=== PATIENT | male | born 1965 | race Caucasian/White ===

== ENCOUNTER 2019-03-25 16:00 | Inpatient (IN) ==
[2019-03-25] MEDS ORDERED: OPTIRAY 320 125ml IV PRN (17:16)
--- NOTE | 2019-03-25 17:23 | CT Scan Report ---
CT ANGIOGRAM OF THE CHEST CLINICAL HISTORY: Shortness of breath. Possible pulmonary embolism. COMPARISON STUDY: Chest x-ray dated 03/25/2019 TECHNIQUE: Following the IV administration of 101 mL of Optiray-320, CT angiogram of the thorax was p erformed from the thoracic inlet to the lung bases utilizing the pulmonary embolus protocol. Images a re reviewed in the axial, sagittal, and coronal planes. IV contrast was administered without complica tion. MIP imaging was performed. A dose lowering technique was utilized adhering to the principles o f ALARA. CT DOSE: 617.18 mGycm FINDINGS: There is a 14 mm left lobe thyroid nodule. The right lobe of the thyroid is not visualized. No pathologically enlarged axillary mediastinal or hilar lymph nodes were visualized. There was no evidence of thoracic aortic dilatation. There were no pulmonary artery filling defects to indicate acute pulmonary embolism. The examination is limited due to significant respiratory motion artifact. No pleural effusions are visualized. There is no focal pulmonary consolidation. IMPRESSION: 1. No evidence of acute pulmonary embolism given the limitations of a motion degraded study. If there is a strong clinical suspicion of the presence of pulmonary embolism then correlation with serial le g ultrasonography should be considered 2. No evidence of focal pulmonary consolidation 3. Nonvisualization of the right lobe of the thyroid. 14 mm left lobe thyroid nodule. Electronically signed by: Sudeep Carpenter M.D. 03/25/2019 5:22 PM
[2019-03-25 17:27] LABS: Basophils # (auto) 0.03 K/uL (0-0.2); Basophils % (auto) 0.4 %; Eosinophils # (auto) 0.09 K/uL (0-0.5); Eosinophils % (auto) 1.3 %; Hematocrit (blood only) 43.5 % (42-52); Hemoglobin 15.8 g/dL (14.0-18.0); Immature Granulocytes # (auto) 0.01 K/uL (0.00-0.02); Immature Granulocytes % (auto) 0.1 %; Lymphocytes # (auto) 1.82 K/uL (1.2-3.4); Lymphocytes % (auto) 26.2 %; Mean Corpuscular Hemoglobin 32.2 pg (25-34); Mean Corpuscular Hgb Conc 36.3 g/dL (32-36); Mean Corpuscular Volume 88.6 fL (80-100); Mean Platelet Volume 9.6 fL (7.4-10.4); Monocytes # (auto) 0.54 K/uL (0.11-0.59); Monocytes % (auto) 7.8 %; Neutrophils # (auto) 4.46 K/uL (1.4-6.5); Neutrophils % (auto) 64.2 %; Platelet Count 258 K/uL (130-400); RDW Coefficient of Variation 12.7 % (11.5-14.5); Red Blood Count 4.91 M/uL (4.7-6.1); White Blood Count 6.95 K/uL (4.8-10.8)
[2019-03-25 17:42] LABS: Albumin Level 4.3 gm/dl (3.4-5.0); BUN Creatinine Ratio 14.3 (10-20); Blood Urea Nitrogen 11 mg/dl (7-18); Calcium 9.4 mg/dl (8.5-10.1); Carbon Dioxide 24 mmol/L (21-32); Chloride 106 mmol/L (98-107); Creatinine Clr Calc Pharmacy 147.5 ml/min; Est GFR (African American) 118.4; Est GFR (Non-African American) 102.2; Glucose 90 mg/dl (70-99); Lipase 793 U/L (73-393); Potassium 3.6 mmol/L (3.5-5.1); Sodium 138 mmol/L (136-145)
[2019-03-25 17:49] LABS: Alanine Aminotransferase 37 U/L (12-78); Alkaline Phosphatase 87 U/L (45-117); Aspartate Aminotransferase 22 U/L (15-37); Bilirubin,Total 0.8 mg/dl (0.2-1); Globulin 4.1 gm/dl (2.5-4.0); Total Protein 8.4 gm/dl (6.4-8.2); Troponin I < 0.015 ng/ml (0-0.045)
[2019-03-25] MEDS ORDERED: PANTOprazole 40 MG TAB PO STA (19:18)
[2019-03-25] MEDS ORDERED: PANTOprazole 40 MG TAB ONE (19:31)
[2019-03-25] MEDS ORDERED: FUROSEMIDE 40 MG/4 ML VIAL IV STA (19:37)
[2019-03-25] MEDS ORDERED: POTASSIUM CHLORIDE 20 MEQ TABCR PO STA (19:37)
--- NOTE | 2019-03-25 19:37 | History & Physical Report ---
Date of Service March 25, 2019 Assessment & Plan (1) Chest pain: Admitted with the exertional shortness of breath and questionable chest pain Symptoms have been going on for more than 3 weeks and has been getting worse This is a second visit for today in the emergency room and troponins have been negative so far We will get serial troponin An echo to evaluate LV function Likely be discharged home if echo is normal and cardiac enzymes does not show any ACS Will need to have an outpatient stress test through his PCP (2) Shortness of breath: Shortness of breath has been going on for more than 3 weeks This is associated with orthopnea No weight gain and no edema Minimal crackles in the right base only on examination We will get BNP May have fluid overload and will get a small dose of Lasix one-time dose tonight Chest x-ray and CT scan has been negative for any fluid overload CTA is negative for pulmonary embolism Will get ultrasound to rule out DVTs Doubt any psoriatic lung disease but will need to have a referral to outpatient tea blender following discharge to get pulmonary function test done No history of asthma and/or COPD and is a non-smoker (3) HTN (hypertension): Continue lisinopril (4) Hyperlipidemia: Continue current medication (5) Psoriasis: Seems to be stable DVT prophylaxis SCDs and increase ambulation CODE STATUS Full History of Present Illness Chief Complaint: Exertional shortness of breath with orthopnea worse for the last few days Primary Care Provider: NO PCP He is 54-year-old male with significant past medical history of hypertension and hyperlipidemia has been complaining of exertional shortness of breath for the last 3 weeks or so. He also has orthopnea and has not been able to sleep for the last few days with the symptoms. He denies any fever and/or chills with it, no cough and no wheezing. No chest pain and/or palpitation. He denies any reflux disease. He was seen in the ER this morning with same symptoms and heparin investigation including EKG, troponin and CTA were negative for any significant findings. He went home and again got shortness of breath with minimal exertion and was brought back to the emergency room. He does not smoke and there is no history of asthma and/or seasonal allergy. He was admitted to telemetry to rule out significant cardiac condition. Allergie s Allergy/AdvReac Type Severity Reaction Status Date / Time No Known Allergies Allergy Verified 03/25/19 16:52 Home Medications Home Medications Medication Instructions Recorded Confirmed Type aspirin 81 mg PO QAM 03/25/19 03/25/19 History atorvastatin 20 mg PO QAM 03/25/19 03/25/19 History colestipol 1 g PO QAM 03/25/19 03/25/19 History lactobacillus combination no.4 0 mmu cells PO QAM 03/25/19 03/25/19 History [Probiotic] lisinopril 20 mg PO QAM 03/25/19 03/25/19 History multivitamin 1 tab PO QAM 03/25/19 03/25/19 History Past Med/Surg History Medical History (Updated 03/25/19 @ 19:28 by Ada Amor MD) HTN (hypertension) Hyperlipidemia Psoriasis Social History Feels Safe at Home: Yes Smoking Status: Never smoker Review of Systems Review of Systems: All systems reviewed & are unremarkable except as noted in HPI & below Physical Exam Physical Exam: Lying in bed comfortably but anxious Constitutional: well developed, well nourished and + ill appearing; no acute distress Eyes: PERRL, conjunctivae normal, anicteric sclerae ENMT: external ear and nose normal, oropharynx normal Neck: trachea midline, no thyromegaly Has 14 mm left thyroid lobe nodule on CAT scan Respiratory: normal respiratory effort Auscultation: lungs clear to auscultation bilaterally and + crackles (Minimal crackles at the right base) Cardiovascular: Rate/Rhythm: regular rate and regular rhythm Heart Sounds: no murmur Gastrointestinal (Abdomen): Inspection/Auscultation: abdomen normal to inspection and normal bowel sounds Percussion/Palpation: abdomen soft; abdomen nontender Musculoskeletal: No acute arthritis in any joint Skin: Has scattered psoriatic patches Neurologic: patellar DTR's 2+ bilat, sensation intact Psychiatric: A+Ox3, euthymic affect Lymphatic: no cervical or axillary lymphadenopathy Results & Data Vital Signs (Past 12 Hours) Vital Signs Temp Pulse Resp BP Pulse Ox 03/25/19 19:00 76 22 143/93 H 98 03/25/19 18:00 76 18 115/72 98 03/25/19 17:30 72 15 135/79 97 03/25/19 16:52 99 03/25/19 16:05 36.5 C 86 24 148/86 H 99 Laboratory Results Short CBC 03/25/19 Range/Units 16:55 WBC 6.95 (4.8-10.8) K/uL Hgb 15.8 (14.0-18.0) g/dL Hct 43.5 (42-52) % Plt Count 258 (130-400) K/uL BMP 03/25/19 16:55 Sodium 138 Potassium 3.6 Chloride 106 Carbon Dioxide 24 BUN 11 Creatinine 0.77 Glucose 90 Calcium 9.4 Cardiac Enzymes 03/25/19 Range/Units 16:55 Troponin I < 0.015 (0-0.045) ng/ml Liver Function 03/25/19 Range/Units 16:55 Total Bilirubin 0.8 (0.2-1) mg/dl AST 22 (15-37) U/L ALT 37 (12-78) U/L Alkaline Phosphatase 87 (45-117) U/L Albumin 4.3 (3.4-5.0) gm/dl Medications Administered Current Inpatient Medications Ioversol (Optiray 320 125ml) 101 ml IV ONCE PRN PRN Reason: Interaction Checking Stop: 03/29/19 17:15 Last Admin: 03/25/19 17:16 Dose: 101 ml Documented by: Pantoprazole Sodium (Protonix) 40 mg PO NOW STA Stop: 03/25/19 19:19 Pantoprazole Sodium (Protonix) 40 mg PO DAILY JOSE Stop: 04/25/19 08:59 Code Status & VTE Plan VTE Prophylaxis Plan VTE Prophylaxis will be ordered: Yes (1) Chest pain Chest pain type: unspecified Qualified Code(s): R07.9 - Chest pain, unspecified
--- NOTE | 2019-03-25 20:50 | Ultrasound Report ---
US venous doppler LE BI CLINICAL HISTORY: Shortness of breath. Suspected pulmonary embolism. Less than optimal CT negative an giography of the chest with leg ultrasound recommended. COMPARISON STUDY: No previous studies for comparison. FINDINGS: Real-time and color flow Doppler imaging were performed. Flow was seen within the femoral, popliteal and calf veins with no intraluminal thrombus demonstrated. The saphenous vein is patent. IMPRESSION: No evidence of lower extremity DVT. Electronically signed by: Sudeep Carpenter M.D. 03/25/2019 8:49 PM
[2019-03-25] MEDS ORDERED: FUROSEMIDE 40 MG/4 ML VIAL IV ONE (22:19)
[2019-03-25] MEDS ORDERED: FUROSEMIDE 40 MG in SYRINGE 0 ML IV ONE (22:25)
--- NOTE | 2019-03-26 00:03 | Emergency Department Note ---
Entered by Concepcion Ceron acting as a scribe for Laci Jordan DO History of Present Illness General Chief complaint: Shortness of Breath/Dyspnea Stated complaint: TROIBLE BREATHING Source: patient History of Present Illness Onset (ago): week(s) 3 Location: chest Pain Consistency: + constant and + other (gradually worsening ) Relieved By: + other (sitting upright) Exacerbated By: + movement (RÍOS) and + rest (laying down) Associated symptoms: + denies other symptoms (diarrhea, arm pain, congestion, rhinorrhea, calf swelling) and + shortness of breath; no cough and no nausea/vomiting The patient is a 54 year old male with a PMHx pertinent for HTN, hyperlipidemia, FHx of paternal VA in his 60s, and other relevant medical problems as indicated on [employer] who presents to the Emergency Room with complaints of shortness of breath/dyspnea. The patient states that he began experiencing shortness of b reath 3 weeks ago which has gradually worsened since onset. He states that it was the worst yesterday so he came to the ED this morning and got an EKG, blood work, and chest x-ray. The patient explains that he was told that any heart related issues are fine and he was sent home to follow up with his PCP. He reports that when he was walking out of the ED today to his car, he had trouble catching his breath. He states that he stopped at his work office to pick something up before heading home and felt like he couldn't catch his breath; "felt winded". The patient reports RÍOS when walking up stairs associated with "shallow breathing and not being able to inhale enough air". He also states that his pain is exacerbated when he is laying down but improved when sitting up. Of note, the patient took a recent trip to [place] and returned home 3 days ago. He denies nausea, vomiting, diarrhea, chest pain, congestion, cough, rhinorrhea, arm pain, calf swelling, and history of blood clots, clotting disorders, DM, or cancer. The patient offers no additional complaints at this time. Home Medications Home Medications Medication Instructions Recorded Confirmed Type aspirin 81 mg PO QAM 03/25/19 03/25/19 History atorvastatin 20 mg PO QAM 03/25/19 03/25/19 History colestipol 1 g PO QAM 03/25/19 03/25/19 History lactobacillus combination no.4 0 mmu cells PO QAM 03/25/19 03/25/19 History [Probiotic] lisinopril 20 mg PO QAM 03/25/19 03/25/19 History multivitamin 1 tab PO QAM 03/25/19 03/25/19 History Allergies Allergy/AdvReac Type Severity Reaction Status Date / Time No Known Allergies Allergy Verified 03/25/19 16:52 Past Med/Surg History Medical History (Updated 03/26/19 @ 00:03 by Laci Jordan DO) HTN (hypertension) (Acute) Hyperlipidemia (Acute) Psoriasis Social History Preferred Language: Bol[place]ian Communication Ability: Effective Beliefs That Will Affect Care: None Current Living Situation: Family Feels Safe at Home: Yes Smoking Status: Never smoker Hx Alcohol Use: Yes Alcohol type: beer Hx Substance Use: No Review of Systems See HPI for pertinent positives & negatives. and A total of 10 systems reviewed and were otherwise negative Physical Exam Vital Signs Vital Signs - 24 hr 03/25/19 16:05 03/25/19 16:52 03/25/19 17:30 Temperature 36.5 C Temperature Source Oral Pulse Rate 86 72 Pulse Rate from SpO2 Sensor 71 Pulse Rhythm Regular Pulse Strength Normal Respiratory Rate 24 15 Respiratory Effort / Characteristics Non-Labored Spontaneous Respiratory Depth Normal Respiratory Pattern Regular Blood Pressure 148/86 H 135/79 Blood Pressure Mean 106 87 Blood Pressure Position Sitting Pulse Oximetry 99 99 97 Oxygen Delivery Method Room Air Room Air Sepsis Recent Fever Within 48 Hours No Sepsis Action Taken by Nursing No Action Required 03/25/19 18:00 03/25/19 19:00 Temperature Temperature Source Pulse Rate 76 76 Pulse Rate from SpO2 Sensor 74 78 Pulse Rhythm Pulse Strength Respiratory Rate 18 22 Respiratory Effort / Characteristics Respiratory Depth Respiratory Pattern Blood Pressure 115/72 143/93 H Blood Pressure Mean 77 120 Blood Pressure Position Pulse Oximetry 98 98 Oxygen Delivery Method Sepsis Recent Fever Within 48 Hours Sepsis Action Taken by Nursing GENERAL: alert, well nourished, sitting up, talking in full sentences, no distress, non-toxic EYE EXAM: normal conjunctiva OROPHARYNX: no exudate, no erythema, lips, buccal mucosa, and tongue normal and mucous membranes are moist NECK: supple, no nuchal rigidity, no adenopathy, non-tender LUNGS: Clear to auscultation. Normal chest wall mechanics HEART: no murmurs, S1 normal and S2 normal ABDOMEN: abdomen soft, non-tender, normo-active bowel sounds, no masses, no rebound or guarding. BACK: Back is symmetrical on inspection and there is no deformity, no midline tenderness, no CVA tenderness. SKIN: no rashes and no bruising UPPER EXTREMITIES: upper extremities are grossly normal. LOWER EXTREMITIES: No pitting edema. Calves equal bilaterally NEURO EXAM: Normal sensorium, cranial nerves II-XII grossly intact, normal speech, no gross weakness of arms, no gross weakness of legs. Course Course 164: Past medical records reviewed. The patient was evaluated in room A09B. A complete history and physical exam was performed. 1822: Spoke with Dr. Amor, [facility] Hospitalist who accepts the patient for admission. The patient verbally expressed understanding and agreement of the treatment plan. The patient will be evaluated for further treatment. Administered Medications Ioversol (Optiray 320 125ml) 101 ml IV ONCE PRN PRN Reason: Interaction Checking Stop: 03/29/19 17:15 Last Admin: 03/25/19 17:16 Dose: 101 ml Documented by: [id number] Discontinued Medications Furosemide (Lasix) Confirm Administered Dose 40 mg IV .STK-MED ONE Stop: 03/25/19 22:20 Last Admin: 03/25/19 22:23 Dose: 40 mg Documented by: [id number] Furosemide 40 mg/ Syringe 4 mls @ 4 mls/min IV ONE ONE Stop: 03/25/19 22:26 Last Admin: 03/25/19 22:23 Dose: Not Given Documented by: [id number] Pantoprazole Sodium (Protonix) 40 mg PO NOW STA Stop: 03/25/19 19:19 Last Admin: 03/25/19 21:34 Dose: 40 mg Documented by: [id number] Pantoprazole Sodium (Protonix) Confirm Administered Dose 40 mg .ROUTE .STK-MED ONE Stop: 03/25/19 19:32 Last Admin: 03/25/19 19:34 Dose: 40 mg Documented by: [id number] Potassium Chloride (Klor-Con M20) 40 meq PO NOW STA Stop: 03/25/19 19:38 Last Admin: 03/25/19 21:34 Dose: 40 meq Documented by: [id number] Impression & Plan Shortness of breath, HTN (hypertension), Hyperlipidemia Discharge Plan Visit Data *Final* Discharge Date/Time: 03/25/19 19:59 Chief Complaint: Shortness of Breath/Dyspnea Stated Complaint: TROIBLE BREATHING ED Provider: Laci Jordan Discharge Problem: Shortness of breath, HTN (hypertension), Hyperlipidemia Patient Disposition: Admitted As Inpatient Discharge Instructions Interventions: ED Discharge Assessment Last Done: 03/25/19 19:59 Medical Decision Making Differential Diagnosis Differential diagnosis includes but is not limited to etiologies such as cardiac ischemia, aortic dissection, pulmonary embolism, pneumonia, pneumothorax, musculoskeletal, infections, pericarditis, myocarditis, esophageal rupture, gastrointestinal, as well as others were entertained. Medical Records Attestation: I reviewed the patient's medical records. Home Medications Current Medication List: was personally reviewed by me Laboratory Data Attestation: I reviewed the patient's lab results. Lab Results 03/25/19 03/25/19 03/25/19 Range/Units 16:55 16:55 16:55 WBC 6.95 (4.8-10.8) K/uL RBC 4.91 (4.7-6.1) M/uL Hgb 15.8 (14.0-18.0) g/dL Hct 43.5 (42-52) % MCV 88.6 (80-100) fL MCH 32.2 (25-34) pg MCHC 36.3 H (32-36) g/dL RDW Std Deviation 41.0 (36.4-46.3) fL RDW Coeff of Yannick 12.7 (11.5-14.5) % Plt Count 258 (130-400) K/uL MPV 9.6 (7.4-10.4) fL Immature Gran % (Auto) 0.1 % Neut % (Auto) 64.2 % Lymph % (Auto) 26.2 % [place] % (Auto) 7.8 % Eos % (Auto) 1.3 % Baso % (Auto) 0.4 % Immature Gran # (Auto) 0.01 (0.00-0.02) K/uL Neut # (Auto) 4.46 (1.4-6.5) K/uL Lymph # (Auto) 1.82 (1.2-3.4) K/uL [place] # (Auto) 0.54 (0.11-0.59) K/uL Eos # (Auto) 0.09 (0-0.5) K/uL Baso # (Auto) 0.03 (0-0.2) K/uL Sodium 138 (136-145) mmol/L Potassium 3.6 (3.5-5.1) mmol/L Chloride 106 (98-107) mmol/L Carbon Dioxide 24 (21-32) mmol/L Anion Gap 8.0 (3-11) BUN 11 (7-18) mg/dl Creatinine 0.77 (0.6-1.4) mg/dl Est Cr Clr Drug Dosing 147.5 ml/min Est GFR ( Amer) 118.4 Est GFR (Non-Af Amer) 102.2 BUN/Creatinine Ratio 14.3 (10-20) Glucose 90 (70-99) mg/dl Calcium 9.4 (8.5-10.1) mg/dl Magnesium 2.0 (1.8-2.4) mg/dl Total Bilirubin 0.8 (0.2-1) mg/dl AST 22 (15-37) U/L ALT 37 (12-78) U/L Alkaline Phosphatase 87 (45-117) U/L Troponin I < 0.015 (0-0.045) ng/ml NT-Pro-B Natriuret Pep 18 (0-900) pg/ml Total Protein 8.4 H (6.4-8.2) gm/dl Albumin 4.3 (3.4-5.0) gm/dl Globulin 4.1 H (2.5-4.0) gm/dl Albumin/Globulin Ratio 1.0 (0.9-2) Lipase 793 H (73-393) U/L Imaging Data Radiologist's Impression: Radiology results as stated below per my review and the radiologist's interpretation: CT ANGIOGRAM OF THE CHEST CLINICAL HISTORY: Shortness of breath. Possible pulmonary embolism. COMPARISON STUDY: Chest x-ray dated 03/25/2019 TECHNIQUE: Following the IV administration of 101 mL of Optiray-320, CT angiogram of the thorax was performed from the thoracic inlet to the lung bases utilizing the pulmonary embolus protocol. Images are reviewed in the axial, sagittal, and coronal planes. IV contrast was administered without complication. MIP imaging was performed. A dose lowering technique was utilized adhering to the principles of ALARA. CT DOSE: 617.18 mGycm FINDINGS: There is a 14 mm left lobe thyroid nodule. The right lobe of the thyroid is not visualized. No pathologically enlarged axillary mediastinal or hilar lymph nodes were visualized. There was no evidence of thoracic aortic dilatation. There were no pulmonary artery filling defects to indicate acute pulmonary embolism. The examination is limited due to significant respiratory motion artifact. No pleural effusions are visualized. There is no focal pulmonary consolidation. IMPRESSION: 1. No evidence of acute pulmonary embolism given the limitations of a motion degraded study. If there is a strong clinical suspicion of the presence of pulmonary embolism then correlation with serial leg ultrasonography should be considered 2. No evidence of focal pulmonary consolidation 3. Nonvisualization of the right lobe of the thyroid. 14 mm left lobe thyroid nodule. Electronically signed by: Sudeep Carpenter M.D. 03/25/2019 5:22 PM US venous doppler [place] JORGE CLINICAL HISTORY: Shortness of breath. Suspected pulmonary embolism. Less than optimal CT negative angiography of the chest with leg ultrasound recommended. COMPARISON STUDY: No previous studies for comparison. FINDINGS: Real-time and color flow Doppler imaging were performed. Flow was seen within the femoral, popliteal and calf veins with no intraluminal thrombus demonstrated. The saphenous vein is patent. IMPRESSION: No evidence of lower extremity DVT. Electronically signed by: Sudeep Carpenter M.D. 03/25/2019 8:49 PM ECG Data Attestation: I personally reviewed and interpreted this ECG as follows: Indication: + SOB/dyspnea Rate (beats per minute): 76 Rhythm: + sinus rhythm ECG Intervals/blocks: + Normal QT ECG Findings: + Other (left axis deviation ); no PVCs Comparison ECG Date: from (10:50AM today) Change: no significant change Blood Pressure Blood Pressure Findings: Elevated blood pressure Blood Pressure Disposition: elevated BP felt to be situational MDM Narrative Patient is a 54-year-old male who presents the ER for shortness of breath which is been getting worse for the past 3 weeks. He was seen here earlier today. He had 2 troponins and chest x-ray was discharged. He walked out to the car and was significantly dyspneic which is even worse than when he was in here. He does have a past medical history of hypertension hyperlipidemia and dad has a previous history of an VA. IV was established blood work was obtained showed no significant leukocytosis or anemia. BMP along with LFTs bilirubin and troponin was negative. proBNP was negative. Lipase was elevated at 800. Do not think that this is consistent with pancreatitis. CT PE was negative although previous d-dimer was negative I did perform this to make sure that there is nothing atypical on the chest. EKG was nondiagnostic. Patient was updated bedside. He was admitted to the hospital after discussion with the patient for worsening symptoms of shortness of breath with his second visit. Discharge Problem: HTN (hypertension) Qualifiers: Hypertension type: unspecified Qualified Code(s): I10 - Essential (primary) hypertension Hyperlipidemia Qualifiers: Hyperlipidemia type: unspecified Qualified Code(s): E78.5 - Hyperlipidemia, unspecified The scribe's documentation has been prepared under my direction and personally reviewed by me in its entirety. I confirm that the note above accurately reflects all work, treatment, procedures, and medical decision making performed by me.
[2019-03-26 06:57] LABS: Basophils # (auto) 0.03 K/uL (0-0.2); Basophils % (auto) 0.5 %; Eosinophils # (auto) 0.19 K/uL (0-0.5); Hematocrit (blood only) 44.6 % (42-52); Immature Granulocytes # (auto) 0.01 K/uL (0.00-0.02); Immature Granulocytes % (auto) 0.2 %; Lymphocytes # (auto) 1.66 K/uL (1.2-3.4); Lymphocytes % (auto) 26.3 %; Mean Corpuscular Hemoglobin 31.9 pg (25-34); Mean Corpuscular Hgb Conc 35.9 g/dL (32-36); Mean Platelet Volume 9.3 fL (7.4-10.4); Monocytes # (auto) 0.44 K/uL (0.11-0.59); Neutrophils # (auto) 3.99 K/uL (1.4-6.5); Platelet Count 250 K/uL (130-400); RDW Coefficient of Variation 12.9 % (11.5-14.5); RDW Standard Deviation 41.7 fL (36.4-46.3); Red Blood Count 5.01 M/uL (4.7-6.1); White Blood Count 6.32 K/uL (4.8-10.8)
[2019-03-26 07:35] LABS: Blood Urea Nitrogen 13 mg/dl (7-18); Calcium 9.4 mg/dl (8.5-10.1); Carbon Dioxide 27 mmol/L (21-32); Chloride 104 mmol/L (98-107); Creatinine Clr Calc Pharmacy 143.3 ml/min; Est GFR (African American) 117.2; Est GFR (Non-African American) 101.1; Glucose 91 mg/dl (70-99); Sodium 139 mmol/L (136-145)
[2019-03-26 07:40] LABS: Troponin I < 0.015 ng/ml (0-0.045)
[2019-03-26] MEDS: MULTIVITAMIN TAB PO SCH (08:08)
[2019-03-26] MEDS: ASPIRIN 81 MG ECTAB PO SCH (08:08)
[2019-03-26] MEDS: LISINOPRIL 20 MG TAB PO SCH (08:08)
[2019-03-26] MEDS ORDERED: ATORVASTATIN 20 MG TAB PO SCH (09:00)
[2019-03-26] MEDS: PANTOprazole 40 MG TAB PO SCH (09:24)
[2019-03-26] MEDS ORDERED: COLESTIPOL HCL 1 GM TAB PO SCH (10:00)
--- NOTE | 2019-03-26 12:00 | Cardiology Consultation ---
Date of Consultation March 26, 2019 Assessment & Plan (1) Dyspnea on exertion: His symptoms are certainly suspicious for that of unstable angina. I was able to partially visualize his coronary anatomy on review of the CT scan and image 68 of 125 reveals significant atherosclerotic disease at the bifurcation of the LAD and circumflex. Obviously, unable to quantify exactly given the limitations of this imaging modality. Given his symptoms, coronary calcifications visualized on CAT scan along with hypokinesis in his mid to distal LAD territory on echocardiogram I believe the most prudent course of action at this point would be to proceed with direct visualization of his coronary anatomy. So we will tentatively plan to perform a cardiac catheterization on 03/28/2019. Obviously should he develop any symptoms not amenable to medical intervention emergent cardiac catheterization may be necessary. (2) CAD (coronary artery disease): As visualized on CT scan. We will continue aspirin at this time and increase his atorvastatin to 80 mg daily. I will also give him a trial of beta- ridge at this time. (3) HTN (hypertension): We will continue his outpatient lisinopril and as above we will attempt to add beta-blockade as well. (4) Hyperlipidemia: Atorvastatin dose will be increased to 80 mg daily. History of Present Illness Reason for Consultation: Unstable angina Requesting Physician: Dr. Pabon Attending Physician: Yoselyn Pabon MD History of Present Illness It was my pleasure to see Officer Farshad in consultation today March 26, 2019. He is a very pleasant 54-year-old gentleman normal [facility] to [facility] emergency department on 03/25/2019 with complaints of worsening shortness of breath. He states that he started noticing approximately 3 weeks ago there is becoming dyspneic with exertion. He states he just did not have the energy to get around and perform his duties as he normally did. He also started having some shortness of breath when laying flat at night. He states he felt as though he was not getting enough air when up to sit up to catch deep breath. Over the next 3 weeks his exertional dyspnea worsened to the point where he came into the ER for evaluation. His initial work-up was unremarkable and he decided to be discharged at that point. Unfortunately. Driving home he only got partly there and shortness of breath again recurred and he came back to the emergency department. He was then admitted to telemetry overnight where his ischemic work-up was unremarkable. However, a resting echocardiogram was performed on 03/26/2019 and wall motion abnormalities were discovered. Currently states he is feeling well at rest he denies expressing any chest discomfort during the last 3 weeks. Allergies Allergy/AdvReac Type Severity Reaction Status Date / Time No Known Allergies Allergy Verified 03/25/19 16:52 Home Medications Home Medications Medication Instructions Recorded Confirmed Type aspirin 81 mg PO QAM 03/25/19 03/25/19 History atorvastatin 20 mg PO QAM 03/25/19 03/25/19 History colestipol 1 g PO QAM 03/25/19 03/25/19 History lactobacillus combination no.4 0 mmu cells PO QAM 03/25/19 03/25/19 History [Probiotic] lisinopril 20 mg PO QAM 03/25/19 03/25/19 History multivitamin 1 tab PO QAM 03/25/19 03/25/19 History Patient History Medical History HTN (hypertension) (Acute) Hyperlipidemia (Acute) Psoriasis Surgical History H/O partial thyroidectomy Social History Preferred Language: Hebrew Communication Ability: Effective Beliefs That Will Affect Care: None Current Living Situation: Family Feels Safe at Home: Yes Smoking Status: Never smoker Hx Alcohol Use: Yes Alcohol type: beer Hx Substance Use: No Review of Systems Review of Systems: All systems reviewed & are unremarkable except as noted in HPI & below Physical Exam Physical Exam: General: Awake, alert and oriented x 3. No acute distress. HEENT: Normocephalic, atraumatic. Pupils equal, round and reactive to light and accommodation. Extraocular muscles are intact. Anicteric sclera. Moist mucous membranes. Neck: No JVD. No bruit. Cardiovascular: Regular. Positive S-4. Normal S-1 and S-2. No S-3. No m urmurs or rubs. Pulmonary: Clear to auscultation B/L. No rales, rhonchi or wheezing Abdomen: Bowel sounds x 4, soft. No rebound, guarding or tenderness. No organomegaly. Extremities: No clubbing, cyanosis or edema. +2 pedal pulses bilaterally. Skin: Warm and dry. Results & Data Vital Signs (Past 12 Hours) Vital Signs Temp Pulse Pulse Resp BP Pulse Ox 03/26/19 08:04 36.9 C 83 18 135/75 93 03/26/19 08:00 73 03/26/19 03:26 36.4 C L 70 18 137/92 92 Laboratory Results Laboratory Results - last 24 hr 03/25/19 03/25/19 03/25/19 16:55 16:55 16:55 WBC 6.95 RBC 4.91 Hgb 15.8 Hct 43.5 MCV 88.6 MCH 32.2 MCHC 36.3 H RDW Std Deviation 41.0 RDW Coeff of Yannick 12.7 Plt Count 258 MPV 9.6 Immature Gran % (Auto) 0.1 Neut % (Auto) 64.2 Lymph % (Auto) 26.2 [place] % (Auto) 7.8 Eos % (Auto) 1.3 Baso % (Auto) 0.4 Immature Gran # (Auto) 0.01 Neut # (Auto) 4.46 Lymph # (Auto) 1.82 [place] # (Auto) 0.54 Eos # (Auto) 0.09 Baso # (Auto) 0.03 Sodium 138 Potassium 3.6 Chloride 106 Carbon Dioxide 24 Anion Gap 8.0 BUN 11 Creatinine 0.77 Est Cr Clr Drug Dosing 147.5 Est GFR ( Amer) 118.4 Est GFR (Non-Af Amer) 102.2 BUN/Creatinine Ratio 14.3 Glucose 90 Calcium 9.4 Magnesium 2.0 Total Bilirubin 0.8 AST 22 ALT 37 Alkaline Phosphatase 87 Troponin I < 0.015 NT-Pro-B Natriuret Pep 18 Total Protein 8.4 H Albumin 4.3 Globulin 4.1 H Albumin/Globulin Ratio 1.0 Lipase 793 H Lyme Disease IgM Ab 03/25/19 03/26/19 03/26/19 19:52 00:11 06:30 WBC RBC Hgb Hct MCV MCH MCHC RDW Std Deviation RDW Coeff of Yannick Plt Count MPV Immature Gran % (Auto) Neut % (Auto) Lymph % (Auto) [place] % (Auto) Eos % (Auto) Baso % (Auto) Immature Gran # (Auto) Neut # (Auto) Lymph # (Auto) [place] # (Auto) Eos # (Auto) Baso # (Auto) Sodium 139 Potassium 4.0 Chloride 104 Carbon Dioxide 27 Anion Gap 8.0 BUN 13 Creatinine 0.79 Est Cr Clr Drug Dosing 143.3 Est GFR ( Amer) 117.2 Est GFR (Non-Af Amer) 101.1 BUN/Creatinine Ratio 16.0 Glucose 91 Calcium 9.4 Magnesium Total Bilirubin AST ALT Alkaline Phosphatase Troponin I < 0.015 < 0.015 NT-Pro-B Natriuret Pep Total Protein Albumin Globulin Albumin/Globulin Ratio Lipase Lyme Disease IgM Ab Negative 03/26/19 06:30 WBC 6.32 RBC 5.01 Hgb 16.0 Hct 44.6 MCV 89.0 MCH 31.9 MCHC 35.9 RDW Std Deviation 41.7 RDW Coeff of Yannick 12.9 Plt Count 250 MPV 9.3 Immature Gran % (Auto) 0.2 Neut % (Auto) 63.0 Lymph % (Auto) 26.3 [place] % (Auto) 7.0 Eos % (Auto) 3.0 Baso % (Auto) 0.5 Immature Gran # (Auto) 0.01 Neut # (Auto) 3.99 Lymph # (Auto) 1.66 [place] # (Auto) 0.44 Eos # (Auto) 0.19 Baso # (Auto) 0.03 Sodium Potassium Chloride Carbon Dioxide Anion Gap BUN Creatinine Est Cr Clr Drug Dosing Est GFR ( Amer) Est GFR (Non-Af Amer) BUN/Creatinine Ratio Glucose Calcium Magnesium Total Bilirubin AST ALT Alkaline Phosphatase Troponin I NT-Pro-B Natriuret Pep Total Protein Albumin Globulin Albumin/Globulin Ratio Lipase Lyme Disease IgM Ab Medications Administered Current Inpatient Medications Aspirin (Ecotrin Ectab) 81 mg PO QAM [facility] Stop: 04/25/19 08:59 Last Admin: 03/26/19 08:08 Dose: 81 mg Documented by: Atorvastatin Calcium (Lipitor) 20 mg PO QAM [facility] Stop: 04/25/19 08:59 Last Admin: 03/26/19 08:08 Dose: 20 mg Documented by: Colestipol HCl (Colestid) 1 gm PO DAILY@1000 [facility] Stop: 04/25/19 09:59 Last Admin: 03/26/19 08:08 Dose: 1 gm Documented by: Ioversol (Optiray 320 125ml) 101 ml IV ONCE PRN PRN Reason: Interaction Checking Stop: 03/29/19 17:15 Last Admin: 03/25/19 17:16 Dose: 101 ml Documented by: Lisinopril (Zestril) 20 mg PO QAM [facility] Stop: 04/25/19 08:59 Last Admin: 03/26/19 08:08 Dose: 20 mg Documented by: Multivitamins (Multivitamin Tab) [facility] Stop: 04/25/19 08:59 Last Admin: 03/26/19 08:08 Dose: 1 tab Documented by: Pantoprazole Sodium (Protonix) 40 mg PO DAILY [facility] Stop: 04/25/19 08:59 Last Admin: 03/26/19 09:24 Dose: 40 mg Documented by: (1) HTN (hypertension) Hypertension type: unspecified Qualified Code(s): I10 - Essential (primary) hypertension (2) Hyperlipidemia Hyperlipidemia type: unspecified Qualified Code(s): E78.5 - Hyperlipidemia, unspecified
[2019-03-26] MEDS: METOPROLOL TARTRATE 25 MG TAB PO SCH ×2 (13:03→18:15)
--- NOTE | 2019-03-26 16:04 | Hospitalist Progress Note ---
Date of Service March 26, 2019 Assessment & Plan (1) Chest pain: UNSTABLE ANGINA: Admitted with the exertional shortness of breath and questionable chest pain Symptoms have been going on for more than 3 weeks and has been getting worse ECHO : moderate hypokinesis of the anteroseptal wall along with mild hypokinesis of the mild to apical portion of the anterior wall Normal LV chamber size , EF 50-55% grade 1 diastolic dysfunction Risk for coronary disease : family hx of CAD -Father had ASCVD , s/p CABG at age 60's pt is a non smoker , active at baseline appreciate input from cardiology plan for for cardiac cath on 03/28/19 cont cardiac risk modification : ordered for aspirin 81 mg daily /atorvastatin 80 mg daily -high intensity statin therapy -ordered for fasting lipid panel in am ; goal LDL < 70 added beta ridge Lopressor 12.5 mg PO Q6hrs (2) Shortness of breath: due to above Shortness of breath with exertion has been going on for more than 3 weeks CTA is negative for pulmonary embolism lower ext Doppler negative for DVT scheduled for cardiac cath in am (3) HTN (hypertension): Continue lisinopril added beta ridge (4) Hyperlipidemia: Lipitor dose increased to 80 mg for high intensity statin tx in setting of CAD (5) Psoriasis: DVT prophylaxis SCDs and increase ambulation CODE STATUS Full DISPOSITION : expected to be discharged home when medically stable [facility] follow up with [facility]ology post discharge Subjective Denies of any chest pain, no shortness of breath, no dyspnea on exertion Has been asymptomatic since admission No fever or chills, no cough Sitting up comfortably on chair, family visiting Physical Exam Constitutional: well developed, well nourished and + ill appearing; no acute distress Eyes: PERRL, conjunctivae normal, anicteric sclerae ENMT: external ear and nose normal, oropharynx normal Neck: trachea midline, no thyromegaly Respiratory: normal respiratory effort Auscultation: lungs clear to auscultation bilaterally and + crackles (Minimal crackles at the right base) Cardiovascular: Rate/Rhythm: regular rate and regular rhythm Heart Sounds: no murmur Gastrointestinal (Abdomen): Inspection/Auscultation: abdomen normal to inspection and normal bowel sounds Percussion/Palpation: abdomen soft; abdomen nontender Skin: no rashes, warm and dry Neurologic: patellar DTR's 2+ bilat, sensation intact Psychiatric: A+Ox3, euthymic affect Results & Data Vital Signs (Past 12 Hours) Vital Signs Temp Pulse Pulse Resp BP Pulse Ox 03/26/19 11:50 36.4 C L 90 18 129/78 94 03/26/19 08:04 36.9 C 83 18 135/75 93 03/26/19 08:00 73 (1) Hyperlipidemia Hyperlipidemia type: unspecified Qualified Code(s): E78.5 - Hyperlipidemia, unspecified (2) Chest pain Chest pain type: unspecified Qualified Code(s): R07.9 - Chest pain, unspecified (3) HTN (hypertension) Hypertension type: unspecified Qualified Code(s): I10 - Essential (primary) hypertension
[2019-03-26] MEDS ORDERED: LORazepam 0.5 MG TAB PO STA (19:29)
[2019-03-27] MEDS: METOPROLOL TARTRATE 25 MG TAB PO SCH ×5 (00:41→22:55)
[2019-03-27 07:09] LABS: Calcium 8.8 mg/dl (8.5-10.1); Creatinine Clr Calc Pharmacy 144.9 ml/min; Est GFR (African American) 117.8; Est GFR (Non-African American) 101.6
[2019-03-27] MEDS: PANTOprazole 40 MG TAB PO SCH (07:40)
[2019-03-27] MEDS: ATORVASTATIN 40 MG TAB PO SCH (07:41)
[2019-03-27] MEDS: LISINOPRIL 20 MG TAB PO SCH (07:41)
[2019-03-27] MEDS: ASPIRIN 81 MG ECTAB PO SCH (07:41)
[2019-03-27] MEDS: MULTIVITAMIN TAB PO SCH (07:41)
[2019-03-27] MEDS ORDERED: Nursing to Pharmacy Communication ONE (09:54)
[2019-03-27] MEDS: COLESTIPOL HCL 1 GM TAB PO SCH (10:02)
--- NOTE | 2019-03-27 11:28 | Cardiology Progress Note ---
Date of Service March 27, 2019 Assessment & Plan (1) Dyspnea on exertion: His symptoms are certainly suspicious for that of unstable angina. I was able to partially visualize his coronary anatomy on review of the CT scan and image 68 of 125 reveals significant atherosclerotic disease at the bifurcation of the LAD and circumflex. Obviously, unable to quantify exactly given the limitations of this imaging modality. Given his symptoms, coronary calcifications visualized on CAT scan along with hypokinesis in his mid to distal LAD territory on echocardiogram I believe the most prudent course of action at this point would be to proceed with direct visualization of his coronary anatomy. So we will tentatively plan to perform a cardiac catheterization on 03/28/2019. Obviously should he develop any symptoms not amenable to medical intervention emergent cardiac catheterization may be necessary. Patient is in agreement with above plan. NPO after midnight. (2) CAD (coronary artery disease): As visualized on CT scan. We will continue aspirin at this time and increase his atorvastatin to 80 mg daily. tolerating metoprolol well, will continue (3) HTN (hypertension): We will continue his outpatient lisinopril and as above we will attempt to add beta-blockade as well. (4) Hyperlipidemia: Atorvastatin dose will be increased to 80 mg daily. Subjective Pt seen and examined, became a little anxious last PM, improved with ativan, slept well. Denies cp, sob, palpitations, lightheadedness or dizziness. No orthopnea. tele reviewed: sinus rhythm without arrhythmia or significant ectopy. Review of Systems Review of Systems: All systems reviewed & are unremarkable except as noted in HPI & below Physical Exam Physical Exam: General: Awake, alert and oriented x 3. No acute distress. HEENT: Normocephalic, atraumatic. Pupils equal, round and reactive to light and accommodation. Extraocular muscles are intact. Anicteric sclera. Moist mucous membranes. Neck: No JVD. No bruit. Cardiovascular: Regular. Positive S-4. Normal S-1 and S-2. No S-3. No murmurs or rubs. Pulmonary: Clear to auscultation B/L. No rales, rhonchi or wheezing Abdomen: Bowel sounds x 4, soft. No rebound, guarding or tenderness. No organomegaly. Extremities: No clubbing, cyanosis or edema. +2 pedal pulses bilaterally. Skin: Warm and dry. Results & Data Vital Signs (Past 12 Hours) Vital Signs Temp Pulse Pulse Resp BP Pulse Ox 03/27/19 08:00 36.7 C 64 79 18 145/79 H 95 03/27/19 04:00 36.6 C 65 16 119/72 94 03/26/19 23:54 36.7 C 69 18 112/64 93 Laboratory Results Laboratory Results - last 24 hr 03/27/19 06:11 Sodium 137 Potassium 4.0 Chloride 105 Carbon Dioxide 25 Anion Gap 7.0 BUN 16 Creatinine 0.78 Est Cr Clr Drug Dosing 144.9 Est GFR ( Amer) 117.8 Est GFR (Non-Af Amer) 101.6 BUN/Creatinine Ratio 20.0 Glucose 98 Calcium 8.8 Triglycerides 123 Cholesterol 118 LDL Cholesterol, Calc 55 VLDL Cholesterol, Calc 25 HDL Cholesterol 38 Cholesterol/HDL Ratio 3 Medications Administered Current Inpatient Medications Aspirin (Ecotrin Ectab) 81 mg PO [facility] Stop: 04/25/19 08:59 Last Admin: 03/27/19 07:41 Dose: 81 mg Documented by: Atorvastatin Calcium (Lipitor) 80 mg PO [facility] Stop: 04/26/19 08:59 Last Admin: 03/27/19 07:41 Dose: 80 mg Documented by: Colestipol HCl (Colestid) 1 gm PO DAILY@1000 [facility] Stop: 04/26/19 09:59 Last Admin: 03/27/19 10:02 Dose: 1 gm Documented by: Ioversol (Optiray 320 125ml) 101 ml IV ONCE PRN PRN Reason: Interaction Checking Stop: 03/29/19 17:15 Last Admin: 03/25/19 17:16 Dose: 101 ml Documented by: Lisinopril (Zestril) [facility] [place] [facility] Stop: 04/25/19 08:59 Last Admin: 03/27/19 07:41 Dose: 20 mg Documented by: Metoprolol Tartrate (Lopressor) 12.5 mg PO Q6 [facility] Stop: 04/25/19 11:59 Last Admin: 03/27/19 05:48 Dose: 12.5 mg Documented by: Multivitamins (Multivitamin Tab) 1 tab PO [facility] Stop: 04/25/19 08:59 Last Admin: 03/27/19 07:41 Dose: 1 tab Documented by: Pantoprazole Sodium (Protonix) 40 mg PO DAILY [facility] Stop: 04/25/19 08:59 Last Admin: 03/27/19 07:40 Dose: 40 mg Documented by: (1) HTN (hypertension) Hypertension type: unspecified Qualified Code(s): I10 - Essential (primary) hypertension (2) Hyperlipidemia Hyperlipidemia type: unspecified Qualified Code(s): E78.5 - Hyperlipidemia, unspecified
--- NOTE | 2019-03-27 12:27 | Hospitalist Progress Note ---
Date of Service March 27, 2019 Assessment & Plan (1) Chest pain: UNSTABLE ANGINA: no further episode since admission Admitted with the exertional shortness of breath and questionable chest pain Symptoms have been going on for more than 3 weeks and has been getting worse ECHO : moderate hypokinesis of the anteroseptal wall along with mild hypokinesis of the mild to apical portion of the anterior wall Normal LV chamber size , EF 50-55% grade 1 diastolic dysfunction Risk for coronary disease : family hx of CAD -Father had ASCVD , s/p CABG at age 60's pt is a non smoker , active at baseline appreciate input from cardiology plan for for cardiac cath tomorrow pt started on : aspirin 81 mg daily /atorvastatin 80 mg daily -high intensity statin therapy /beta ridge Lopressor 12.5 mg PO Q6hrs Fasting lipid panel shows LDL 55 ( goal < 70 ) (2) Shortness of breath: symptom has resolved due to unstable angina with underlying Coronary artery disease no evidence of vol overload Shortness of breath with exertion has been going on for more than 3 weeks CTA is negative for pulmonary embolism lower ext Doppler negative for DVT scheduled for cardiac cath in am (3) HTN (hypertension): Continue lisinopril added beta ridge (4) Hyperlipidemia: Lipitor dose increased to 80 mg for high intensity statin tx in setting of CAD (5) Psoriasis: DVT prophylaxis SCDs and increase ambulation CODE STATUS Full DISPOSITION : expected to be discharged home when medically stable [facility] will need close follow up with cardiology post discharge Subjective comfortable no complain of chest pain or chest heaviness -no recurrence of symptom no cough , SOB , no RÍOS ,or Orthopnea no fever or chills scheduled for Cardiac cath tomorrow . Physical Exam Constitutional: well developed, well nourished and + ill appearing; no acute distress Eyes: PERRL, conjunctivae normal, anicteric sclerae ENMT: external ear and nose normal, oropharynx normal Neck: trachea midline, no thyromegaly Respiratory: normal respiratory effort Auscultation: lungs clear to auscultation bilaterally and + crackles (Minimal crackles at the right base) Cardiovascular: Rate/Rhythm: regular rate and regular rhythm Heart Sounds: no murmur Gastrointestinal (Abdomen): Inspection/Auscultation: abdomen normal to inspection and normal bowel sounds Percussion/Palpation: abdomen soft; abdomen nontender Skin: no rashes, warm and dry Neurologic: patellar DTR's 2+ bilat, sensation intact Psychiatric: A+Ox3, euthymic affect Lymphatic: no cervical or axillary lymphadenopathy Results & Data Vital Signs (Past 12 Hours) Vital Signs Temp Pulse Pulse Pulse Resp BP Pulse Ox 03/27/19 11:36 36.6 C 86 18 120/72 96 03/27/19 08:00 36.7 C 64 79 18 145/79 H 95 03/27/19 04:00 36.6 C 65 16 119/72 94 (1) Hyperlipidemia Hyperlipidemia type: unspecified Qualified Code(s): E78.5 - Hyperlipidemia, unspecified (2) Chest pain Chest pain type: unspecified Qualified Code(s): R07.9 - Chest pain, unspecified (3) HTN (hypertension) Hypertension type: unspecified Qualified Code(s): I10 - Essential (primary) hypertension
[2019-03-28] MEDS: METOPROLOL TARTRATE 25 MG TAB PO SCH ×2 (06:30→12:47)
[2019-03-28 07:12] LABS: BUN Creatinine Ratio 16.8 (10-20); Calcium 8.7 mg/dl (8.5-10.1); Creatinine Clr Calc Pharmacy 129.9 ml/min; Est GFR (African American) 112.6; Est GFR (Non-African American) 97.2
[2019-03-28] MEDS: MULTIVITAMIN TAB PO SCH (07:50)
[2019-03-28] MEDS: ATORVASTATIN 40 MG TAB PO SCH (07:50)
[2019-03-28] MEDS: PANTOprazole 40 MG TAB PO SCH (07:50)
[2019-03-28] MEDS: ASPIRIN 81 MG ECTAB PO SCH (07:51)
[2019-03-28] MEDS: LISINOPRIL 20 MG TAB PO SCH (07:51)
--- NOTE | 2019-03-28 08:47 | Communication Note ---
Date of Service: March 28, 2019 This is a 54-year-old male patient who presented with accelerated angina, heart failure and wall motion abnormalities on the echocardiogram in the LAD distribution. I agree the patient should undergo a cardiac catheterization. I have explained the risk, benefit and intent of the procedure to him and he is willing to proceed. It will be completed later this morning.
[2019-03-28] MEDS: COLESTIPOL HCL 1 GM TAB PO SCH (08:51)
[2019-03-28] MEDS ORDERED: SODIUM CHLORIDE 0.9% 1000ML 1,000 ML IV SCH (09:00)
[2019-03-28] MEDS ORDERED: NiCARDipine HCL INJ 2.5 MG/ML 10 ML AMP ONE (10:49)
[2019-03-28] MEDS ORDERED: MIDAZOLAM HCL 1 MG/ML 2ML VIAL ONE ×2 (10:49→11:23)
[2019-03-28] MEDS ORDERED: HEPARIN (PORCINE) 1000 UNIT/ML 10 ML (CATH LAB USE ONLY) ONE (10:49)
[2019-03-28] MEDS ORDERED: fentaNYL citrate 100 MCG/2 ML VIAL ONE (10:49)
[2019-03-28] MEDS ORDERED: NITROGLYCERIN/D5W 100MCG/ML 20ML SYR ONE (10:50)
--- NOTE | 2019-03-28 11:55 | Cardiac Catheterization ---
Date of Service March 28, 2019 Cardiac Cath Report Cardiac Cath Report Procedure: 1. Left heart catheterization 2. Coronary angiography 3. Left ventriculogram History: This is a 54-year-old male patient with no prior history of heart disease who presented with chest pain and dyspnea on exertion. An echocardiogram suggested wall motion abnormalities in the anterior myocardium and he was referred for cardiac catheterization. [facility] data: Start time 11:16 AM End time 11:43 AM Opening aortic pressure 100/72 Closing aortic pressure 108/75 LV pressure 93/7 Sedation 3 mg intravenous Versed IV fluid 50 cc normal saline Contrast 120 cc Optiray Fluoroscopy time 7.6 minutes Radiation 1952 mGy DAP 186.42 milligray per meter squared Right dominant system AUC score 8 Coronary angiography: Selective injections of the left coronary artery revealed a left main trunk to be widely patent. There is a large ramus branch from the left main which is smooth in appearance and widely patent. There is one branch artery from the ramus which has a 30% ostial stenosis with the remainder of the branch arteries being widely patent. The left circumflex artery consists principally of a medium size posterior marginal branch. The left circumflex system is widely patent. The LAD has luminal irregularities proximally but is widely patent. Selective injections of the right coronary artery reveal it to be dominant. The right coronary artery is smooth in appearance widely patent and within normal limits. Left ventriculogram: Selective injections into the left ventricle revealed to be of normal size. There appears to be normal LV function with an estimated left ventricular ejection fraction of around 60%. The aortic root and ascending aorta have normal morphology and diameter. Summary: The patient has widely patent coronary anatomy with minor coronary artery disease of the proximal LAD and ostium of a branch from a large ramus intermediate artery. LV function appears to be normal Recommendations: The recommendations are for medical management of the patient's coronary artery disease.
--- NOTE | 2019-03-28 14:04 | Cardiology Progress Note ---
Date of Service March 28, 2019 Assessment & Plan (1) Dyspnea on exertion: Likely his cardiac catheterization did not reveal any significant coronary artery disease. So at this point I believe to be reasonable to diagnose him with acute decompensated diastolic heart failure. He has diuresed significantly since admission and I believe would be prudent to start him on Lasix 20 mg p.o. daily and then follow-up with me as an outpatient. My office will call to arrange follow-up in approximately 1 month. Is okay to discharge patient home from a cardiac standpoint based on his comfort. He would have no restrictions from a cardiac standpoint after discharge. He was counseled that should his symptoms worsen he should either contact me or come in emergently to the emergency department. (2) CAD (coronary artery disease): no obstructive disease (3) HTN (hypertension): We will continue his outpatient lisinopril and as above we will attempt to add beta-blockade as well. He should be discharged home on metoprolol succinate 50 mg daily which will not only help support his antihypertensive regimen but also increased diastolic filling time and hopefully prevent diastolic decompensation. (4) Hyperlipidemia: Atorvastatin dose will be increased to 80 mg daily. Subjective Patient seen and examined status post catheterization with family at bedside. He currently states that he is feeling well and is not had any recurrences of his shortness of breath. He continues to diurese well. And denies any chest p ain, palpitations, lightheadedness, dizziness or syncope. Telemetry reviewed: Normal sinus rhythm without significant ectopy or arrhythmia. Review of Systems Review of Systems: All systems reviewed & are unremarkable except as noted in HPI & below Physical Exam Physical Exam: General: Awake, alert and oriented x 3. No acute distress. HEENT: Normocephalic, atraumatic. Pupils equal, round and reactive to light and accommodation. Extraocular muscles are intact. Anicteric sclera. Moist mucous membranes. Neck: No JVD. No bruit. Cardiovascular: Regular. Positive S-4. Normal S-1 and S-2. No S-3. No murmurs or rubs. Pulmonary: Clear to auscultation B/L. No rales, rhonchi or wheezing Abdomen: Bowel sounds x 4, soft. No rebound, guarding or tenderness. No organomegaly. Extremities: No clubbing, cyanosis or edema. +2 pedal pulses bilaterally. Skin: Warm and dry. Results & Data Vital Signs (Past 12 Hours) Vital Signs Temp Pulse Pulse Pulse Resp BP Pulse Ox 03/28/19 13:30 81 18 125/80 96 03/28/19 13:00 74 18 133/95 96 03/28/19 12:45 71 11 L 117/58 L 95 03/28/19 12:30 74 18 126/105 H 96 03/28/19 12:15 71 18 122/73 96 03/28/19 12:04 76 16 109/59 L 93 03/28/19 11:50 74 16 118/68 92 03/28/19 08:32 68 03/28/19 07:36 36.7 C 74 18 133/72 95 03/28/19 06:29 67 127/81 96 03/28/19 04:00 36.6 C 61 16 114/75 94 Laboratory Results Laboratory Results - last 24 hr 03/28/19 05:49 Sodium 138 Potassium 4.0 Chloride 104 Carbon Dioxide 28 Anion Gap 6.0 BUN 15 Creatinine 0.87 Est Cr Clr Drug Dosing 129.9 Est GFR ( Amer) 112.6 Est GFR (Non-Af Amer) 97.2 BUN/Creatinine Ratio 16.8 Glucose 96 Calcium 8.7 Medications Administered Current Inpatient Medications Aspirin (Ecotrin Ectab) 81 mg PO [facility] Stop: 04/25/19 08:59 Last Admin: 03/28/19 07:51 Dose: 81 mg Documented by: Atorvastatin Calcium (Lipitor) [facility] [place] Stop: 04/26/19 08:59 Last Admin: 03/28/19 07:50 Dose: 80 mg Documented by: Colestipol HCl (Colestid) 1 gm PO DAILY@1000 [facility] Stop: 04/26/19 09:59 Last Admin: 03/28/19 08:51 Dose: 1 gm Documented by: Ioversol (Optiray 320 125ml) 101 ml IV ONCE PRN PRN Reason: Interaction Checking Stop: 03/29/19 17:15 Last Admin: 03/25/19 17:16 Dose: 101 ml Documented by: Lisinopril (Zestril) 20 [facility] [place] Stop: 04/25/19 08:59 Last Admin: 03/28/19 07:51 Dose: 20 mg Documented by: Metoprolol Tartrate (Lopressor) 12.5 mg PO Q6 [facility] Stop: 04/25/19 11:59 Last Admin: 03/28/19 12:47 Dose: 12.5 mg Documented by: Multivitamins (Multivitamin Tab) 1 tab PO QAM [facility] Stop: 04/25/19 08:59 Last Admin: 03/28/19 07:50 Dose: 1 tab Documented by: Pantoprazole Sodium (Protonix) 40 mg PO DAILY [facility] Stop: 04/25/19 08:59 Last Admin: 03/28/19 07:50 Dose: 40 mg Documented by: (1) HTN (hypertension) Hypertension type: unspecified Qualified Code(s): I10 - Essential (primary) hypertension (2) Hyperlipidemia Hyperlipidemia type: unspecified Qualified Code(s): E78.5 - Hyperlipidemia, unspecified
--- NOTE | 2019-03-28 18:18 | Discharge Summary ---
Date of Service March 28, 2019 Admission HPI Per Admitting Provider He is 54-year-old male with significant past medical history of hypertension and hyperlipidemia has been complaining of exertional shortness of breath for the last 3 weeks or so. He also has orthopnea and has not been able to sleep for the last few days with the symptoms. He denies any fever and/or chills with it, no cough and no wheezing. No chest pain and/or palpitation. He denies any reflux disease. He was seen in the ER this morning with same symptoms and heparin investigation including EKG, troponin and CTA were negative for any significant findings. He went home and again got shortness of breath with minimal exertion and was brought back to the emergency room. He does not smoke and there is no history of asthma and/or seasonal allergy. He was admitted to telemetry to rule out significant cardiac condition. Principal Diagnosis ACUTE DIASTOLIC HEART FAILURE /UNSTABLE ANGINA /NON OCCLUSIVE CORONARY ARTERY DISEASE Discharge Exam Constitutional well developed, well nourished and + ill appearing; no acute distress Eyes PERRL, conjunctivae normal, anicteric sclerae ENMT external ear and nose normal, oropharynx normal Neck trachea midline, no thyromegaly Respiratory normal respiratory effort Auscultation: lungs clear to auscultation bilaterally and + crackles (Minimal crackles at the right base) Cardiovascular Rate/Rhythm: regular rate and regular rhythm Heart Sounds: no murmur Gastrointestinal (Abdomen) Inspection/Auscultation: abdomen normal to inspection and normal bowel sounds Percussion/Palpation: abdomen soft; abdomen nontender Skin no rashes, warm and dry Neurologic patellar DTR's 2+ bilat, sensation intact Psychiatric A+Ox3, euthymic affect Lymphatic no cervical or axillary lymphadenopathy Discharge Data Allergies Allergy/AdvReac Type Severity Reaction Status Date / Time No Known Allergies Allergy Verified 03/25/19 16:52 Consultations 03/26/19 09:49 Consult Cardiology Routine 03/28/19 08:00 Consult Cardiac Catheterization Routine Procedures Performed Operation Date: 03/28/19 12:00 Actual Procedures p Cath, Left with Cors and Vent - Cheikh Mott DO s Cineradiography w/Routine Exam - Cheikh Mott DO Ordered Studies 03/25/19 16:45 CT angio chest PE protocol Stat 03/25/19 19:02 US venous doppler LE BI Stat 03/28/19 10:50 CL Cath Imgs for PACS use only Routine Hospital Course (1) Chest pain: UNSTABLE ANGINA: no further episode since admission Admitted with the exertional shortness of breath and questionable chest pain Symptoms have been going on for more than 3 weeks and has been getting worse ECHO : moderate hypokinesis of the anteroseptal wall along with mild hypokinesis of the mild to apical portion of the anterior wall Normal LV chamber size , EF 50-55% grade 1 diastolic dysfunction Risk for coronary disease : family hx of CAD -Father had ASCVD , s/p CABG at age 60's pt is a non smoker , active at baseline appreciate input from cardiology -s/p cardiac cath today -shows minimum occlusive CAD , recommend medical management Per Cardiology -pt's presentation with SOB, RÍOS possible due to acute decompensation of Diastolic CHF -with preserved LV function started on Lasix 20 mg daily pt will continue with Lisinopril Cardiology follow up with Dr Vilchis in 1 months pt is stable to be discharged home today added Aspirin 81 mg Lipitor /Atorvastatin dose increased to 40 mg daily ( same efficacy as 80 mg /day dose with less side effect) Beta ridge changed to Toprol XL Fasting lipid panel shows LDL 55 ( goal < 70 ) (2) Shortness of breath: symptom has resolved presented Shortness of breath with exertion has been going on for more than 3 weeks possible due to Acute decompensation of CHF with diastolic dysfunction started on Lasix 20 mg daily pt is given instructions for low salt diet , monitoring daily wt s/s of decompensation of Heart failure CTA is negative for pulmonary embolism lower ext Doppler negative for DVT (3) HTN (hypertension): Continue lisinopril added beta ridge (4) Hyperlipidemia: Lipitor dose increased to 40 mg ( was on 20 mg daily ) for high intensity statin tx in setting of CAD (5) Psoriasis: DVT prophylaxis low risk , very active at baseline SCDs and increase ambulation CODE STATUS Full DISPOSITION : stable to be discharged home today [facility] with [facility] in 1 month Total Time Total Time Spent Total Time Spent (In Minutes): approx 35 mins Total Time Includes: Discharge Planning, Medication Reconciliation and Communication With Other Providers Discharge Plan Discharge Items Patient Disposition: Home - Self-Care Reason For Visit: SOB,ATYPICAL ANGINA Discharge Diagnosis: ACUTE DIASTOLIC HEART FAILURE /UNSTABLE ANGINA /NON OCCLUSIVE CORONARY ARTERY DISEASE Activity: Resume your previous activity Non-emergency contact: Primary Care Provider Call non-emergency contact if: you have any medication questions Follow-up/Referrals: Pollo Vilchis, [Physician] - (IN 1 MONTH ) Diet: Heart Healthy Addtl Attending Provider Instructions: FOLLOW UP WITH YOU PHYSICIAN AT [facility] FOLLOW UP WITH DR VILCHIS IN A MONTH , OFFICE WILL CALL WITH APPOINTMENT NEW MEDICATIONS: METOPROLOL SUCCINATE 50 MG -1 TABLET DAILY -FOR HIGH BLOOD PRESSURE FUROSEMIDE /LASIX 20 MG DAILY -FOR HIGH BLOOD PRESSURE Call your Primary Care doctor if any of the following symptoms or problems start or get worse: * Shortness of breath or difficulty breathing * Wake up at night short of breath * Chest pain * Cough * Swelling of your hands, feet, or legs * More fatigued or tired with your normal activity * Palpitations - sudden fast heart beats WEIGHT * Weigh yourself every morning after using the bathroom. * Use the same scale. * Wear the same amount of clothing. * Write your weight down on a chart. * Call your Primary Care doctor if you gain more than 2-3 pounds in 1-2 days. MEDICATIONS * Use this discharge instruction sheet for medication instructions. * Take your medications at the time your doctor ordered. * Do not skip a dose of your medicines. * If you miss a dose of medicine, take it as soon as possible, but DO NOT DOUBLE A DOSE. * Read your medicine information when you get home. * Know all of the side effects of your medicine. If in doubt, ask your pharmacist * Call your Primary Care doctor's office if you have any side effects. * Be sure all of your doctors know what medicine and herbs you take (including cold, flu, and herbal medicine). Take the following with you to your follow-up doctor appointments: * Weight Chart * Medication List * List of questions Do not drink excessive alcohol, beer or wine. Pending Studies at Discharge: No Stand-Alone Forms: [employer], Work/School Release (Inpt), Smoking Cessation Medications and DC Order Prescriptions: New metoprolol succinate 50 mg Tablet Extended Release 24 Hr 50 mg PO QAM 30 Days Qty: 30 RF: 3 furosemide 20 mg Tablet 20 mg PO QAM 30 Days Qty: 30 RF: 3 Continued multivitamin Tablet 1 tab PO QAM RF: 0 lisinopril 20 mg Tablet 20 mg PO QAM RF: 0 aspirin 81 mg Tablet,Delayed Release (/Ec) 81 mg PO QAM RF: 0 Probiotic 3 billion cell Capsule 0 mmu cells PO QAM RF: 0 Changed atorvastatin 20 mg Tablet 40 mg PO QAM Qty: 60 RF: 0 Discontinued colestipol 1 gram Tablet 1 g PO QAM RF: 0 Discharge Orders: Discharge Order (Routine); Ordered 03/28/19 Ordered By: Yoselyn Dillon/Other Patient Handouts: Tips Using Less Salt, Choices Low Salt, Heart Failure Diet Changes, Diet Low Salt Dc, Foods Heart Healthy Admission Data Admit Date/Time: 03/26/19 12:53 Attending Provider: Yoselyn Pabon Admit Provider: Ada Amor Primary Care Provider: PCP,NO Other Providers: Pollo Vilchis ; Bubba Mejia ; Richard Moreau ; Josesito Turner ; Cheikh Mott ; Ricco Le ; Judi Contreras ; Marlene Causey Other Interventions: Discharge Summary Assessment (RN) Last Done: 03/28/19 18:14 DC Date/Time DO NOT enter until pt leaves facility: 03/28/19 18:49
[2019-03-29] MEDS ORDERED: METOPROLOL SUCC 50MG EXT REL TAB PO SCH (09:00)
[2019-03-29] MEDS ORDERED: FUROSEMIDE 20 MG TAB PO SCH (09:00)
== END 2019-03-28 18:49 | disposition home or self-care (01) | DRG 286 ==
LOC: ED 16:00 → 2E 16:00 → SUATTDRO 19:15 → 2E 19:59